=== PATIENT | female | born 1955 | race Caucasian/White ===

== ENCOUNTER 2021-03-11 07:31 | Outpatient (CLI) | payer BC ==
[2021-03-11 15:40] LABS: CHOLESTEROL 206 mg/dL; TRIGLYCERIDES 77 mg/dL; VLDL CHOLESTEROL 15 mg/dL
[2021-03-11 16:36] LABS: CHOL/HDL RATIO 2.5 (<4.4); HDL CHOLESTEROL 83 mg/dL; LDL CHOLESTEROL,CALCULATED 108 mg/dL; LDL/HDL RATIO 1.3 (<4.4)
== END 2021-03-11 07:32 | disposition home or self-care (01) ==
LOC: LAB.S 07:31
PROVIDERS: ATTEND Hospitalist
DX: E78.5 Hyperlipidemia, unspecified (principal)
CPT/HCPCS: 36415; 80061; 83721

== ENCOUNTER 2022-09-01 07:50 | Outpatient (CLI) | payer MEDICARE, OTHER ==
[2022-09-01 15:38] LABS: CHOL/HDL RATIO 2.4 (<4.4); CHOLESTEROL 199 mg/dL; HDL CHOLESTEROL 82 mg/dL; LDL CHOLESTEROL,CALCULATED 108 mg/dL; LDL/HDL RATIO 1.3 (<4.4); TRIGLYCERIDES 44 mg/dL; VLDL CHOLESTEROL 9 mg/dL
== END 2022-09-01 07:51 | disposition home or self-care (01) ==
LOC: LAB.S 07:50
PROVIDERS: ATTEND Internal Medicine
DX: E78.5 Hyperlipidemia, unspecified (principal)
CPT/HCPCS: 36415; 80061; 83721

== ENCOUNTER 2023-07-21 07:19 | Outpatient (CLI) | payer MEDICARE, OTHER ==
[2023-07-21 15:05] LABS: CHOL/HDL RATIO 2.4 (<4.4); CHOLESTEROL 210 mg/dL; HDL CHOLESTEROL 86 mg/dL; LDL CHOLESTEROL,CALCULATED 112 mg/dL; LDL/HDL RATIO 1.3 (<4.4); TRIGLYCERIDES 59 mg/dL (48-352); VLDL CHOLESTEROL 12 mg/dL
== END 2023-07-21 07:20 | disposition home or self-care (01) ==
LOC: LAB.S 07:19
PROVIDERS: ATTEND Internal Medicine
DX: E78.5 Hyperlipidemia, unspecified (principal)
CPT/HCPCS: 36415; 80061; 83721